=== PATIENT | female | born 1980 | race Caucasian/White ===

== ENCOUNTER 2020-07-21 10:31 | Emergency (ER) | payer OTHER ==
[~2020-07-21] VITALS: Ht 170.2 cm; Wt 94.0 kg
[2020-07-21 10:41] VITALS: BP 143/70
--- NOTE | 2020-07-21 11:13 | PHYS DOC ---
Past History Past Medical History: Hypotension, Kidney Stones, UTI Past Surgical History: Hysterectomy, Tonsillectomy, Other Additional Past Surgical Histo: ACL, shoulder repair, kidney stone retrieval, urinary stent Alcohol Use: None General Adult EDM: Chief Complaint: PELVIC PAIN HPI: HPI: Patient is a female past medical history of kidney stones presents with a chief complaint of left sided flank and groin pain. Patient has associated urinary urgency and frequency. Symptoms have been ongoing for the last few days progressively becoming worse. Review of Systems: Review of Systems: Constitutional: Denies fever or chills Eyes: Denies change in visual acuity HENT: Denies nasal congestion or sore throat Respiratory: Denies cough or shortness of breath Cardiovascular: Denies chest pain or edema GI: Denies abdominal pain, nausea, vomiting, bloody stools or diarrhea : Positive urinary urgency positive frequency positive flank pain Musculoskeletal: Denies back pain or joint pain Integument: Denies rash Neurologic: Denies headache, focal weakness or sensory changes Endocrine: Denies polyuria or polydipsia Lymphatic: Denies swollen glands Psychiatric: Denies depression or anxiety Allergies: Allergies: Allergies Coded Allergies Type Severity Reaction Last Updated Verified tamsulosin Allergy Severe 07/21/20 Yes Uncoded Allergies Type Severity Reaction Last Updated Verified SULFA Allergy Severe 07/21/20 Physical Exam: PE: Constitutional: Well developed, well nourished, no acute distress, non-toxic appearance. [] HENT: Normocephalic, atraumatic, bilateral external ears normal, oropharynx moist, no oral exudates, nose normal. [] Eyes: PERRLA, EOMI, conjunctiva normal, no discharge. [] Neck: Normal range of motion, no tenderness, supple, no stridor. [] Cardiovascular:Heart rate regular rhythm, no murmur [] Lungs & Thorax: Bilateral breath sounds clear to auscultation [] Abdomen: Bowel sounds normal, soft, no tenderness, no masses, no pulsatile masses. [] Skin: Warm, dry, no erythema, no rash. [] Back: No tenderness, no CVA tenderness. [] Extremities: No tenderness, no cyanosis, no clubbing, ROM intact, no edema. [] Neurologic: Alert and oriented X 3, normal motor function, normal sensory function, no focal deficits noted. [] Psychologic: Affect normal, judgement normal, mood normal. [] Current Patient Data: Vital Signs: Vital Signs Date Time Temp Pulse Resp B/P (MAP) Pulse Ox O2 Delivery O2 Flow Rate FiO2 07/21/20 10:41 97.7 90 16 143/70 (94) 98 EKG: EKG: [] Radiology/Procedures: Radiology/Procedures: [] Impressions: IMPRESSION: 2 tiny nonobstructing calculi in the left kidney. No significant hydronephrosis however there is a 3.6 mm calcification in the left pelvis in or adjacent to the left ureter measuring 4.5 mm in size. This may represent a phlebolith as there are multiple phleboliths in the pelvis however distal ureteral calculus cannot be totally excluded. Recommend clinical correlation follow-up. Severe degenerative changes at the L5-S1 disc level. Electronically signed by: Deana Jc MD (07/21/2020 12:31 PM) [id number] Heart Score: Risk Factors: Risk Factors: DM, Current or recent (<one month) smoker, HTN, HLP, family history of CAD, obesity. Risk Scores: Score 0 - 3: 2.5% MACE over next 6 weeks - Discharge Home Score 4 - 6: 20.3% MACE over next 6 weeks - Admit for Clinical Observation Score 7 - 10: 72.7% MACE over next 6 weeks - Early Invasive Strategies Course & Med Decision Making: Course & Med Decision Making Pertinent Labs and Imaging studies reviewed. (See chart for details) [] Patient was evaluated for chief complaint. Work-up consisted of laboratory analysis and radiologic imaging. Results reviewed and discussed with patient. Patient's pain treated with Toradol. Patient was discharged home with prescription Poca. CT imaging confirms to tiny kidney stones in the left kidney. Radiologist questions kidney stone distal ureter. Given patient's history I suspect kidney stone. Patient is allergic to Flomax. Patient advised to take NSAIDs she will. Prescribed Poca. Patient referred to urology. Steffen Disclaimer: Steffen Disclaimer: This electronic medical record was generated, in whole or in part, using a voice recognition dictation system. Departure Departure: Impression: Primary Impression: Kidney stone Additional Impression: Flank pain Disposition: 01 DC HOME SELF CARE/HOMELESS Condition: STABLE Referrals: KELLIE MIRANDA (PCP) Patient Instructions: Kidney Stones Additional Instructions: [facility] [place] phone #[phone] Scripts Hydrocodone Bit/Acetaminophen (NORCO 5-325 TABLET) 1 Each Tablet 1 TAB PO PRN Q6HRS PRN for PAIN for 10 Days, #20 TAB 0 Refills Prov: ADELIA WILSON DO 07/21/20 ADELIA WILSON DO Jul 21, 2020 11:13
[2020-07-21 11:29] LABS: BILIRUBIN,URINE NEG (NEG); CLARITY,URINE HAZY; COLOR,URINE YELLOW; GLUCOSE,URINE NEG (NEG)
[2020-07-21 11:30] LABS: NITRITE,URINE NEG (NEG); RBC,URINE >40 /HPF (0-2); UROBILINOGEN,URINE 0.2 mg/dL (0.2 mg/dL); WBC,URINE OCC /HPF (0-4)
[2020-07-21 11:31] LABS: BACTERIA,URINE FEW /HPF (0-FEW); SQUAMOUS EPITHELIAL CELL,UR MOD /LPF
[2020-07-21 11:37] LABS: BASO % 1 % (0-3); EOS # 0.1 x10^3/uL (0.0-0.7); EOS % 1 % (0-3); HEMATOCRIT 39.8 % (36.0-47.0); HEMOGLOBIN 13.3 g/dL (12.0-15.5); LYMPH % 38 % (24-48); MEAN CORPUSCULAR HEMOGLOBIN 31 pg (25-35); MEAN CORPUSCULAR HGB CONC 33 g/dL (31-37); MEAN CORPUSCULAR VOLUME 91 fL (79-100); MONO # 0.5 x10^3/uL (0.0-1.1); MONO % 9 % (0-9); NEUT # 2.8 x10^3uL (1.8-7.7); NEUT % 52 % (31-73); PLATELET COUNT 216 x10^3/uL (140-400); RED BLOOD COUNT 4.37 x10^6/uL (3.50-5.40); RED CELL DISTRIBUTION WIDTH 13.1 % (11.5-14.5); WHITE BLOOD COUNT 5.4 x10^3/uL (4.0-11.0)
[2020-07-21 11:40] LABS: CALCIUM 8.7 mg/dL (8.5-10.1); CREATININE 0.8 mg/dL (0.6-1.0); GFR 80.3; POTASSIUM 3.6 mmol/L (3.5-5.1)
[2020-07-21 11:46] LABS: ALBUMIN/GLOBULIN RATIO 1.2 (1.0-1.7); TOTAL BILIRUBIN 1.2 mg/dL (0.2-1.0); TOTAL PROTEIN 7.3 g/dL (6.4-8.2)
[2020-07-21] MEDS ORDERED: KETOROLAC 30 MG/ML VIAL. IM ONE (12:00)
--- NOTE | 2020-07-21 12:33 | RAD ---
CT abdomen and pelvis without contrast: Reason for examination: Left sided flank pain. Helical images were obtained through the abdomen and pelvis with no intravenous or oral contrast admi nistered. Reconstruction was performed in sagittal and coronal planes. Exposure: One or more of the following individualized dose reduction techniques were utilized for thi s examination: 1. Automated exposure control 2. Adjustment of the mA and/or kV according to patient size 3. Use of iterative reconstruction technique. The lung bases are clear. The heart size is normal with no pericardial effusion. No abnormality seen at the liver, spleen, adrenal glands, pancreas or gallbladder. There is a small s plenule near the splenic hilum measuring approximately 1.1 cm in size. The abdominal aorta and inferi or vena cava show no acute abnormalities. There is no diverticulosis or diverticulitis or colitis. No abnormality seen at the appendix. The small intestinal tract shows no abnormally dilated loops of an wel or thickened bowel howe and no obstruction. No abnormality seen at the stomach which is not dist ended. The kidneys show no renal masses. There appear to be small nonobstructing renal calculi in the left kidney. No significant hydronephrosis is seen but there does appear to be a 4.5 mm calcificatio n in the pelvis which may lie within or adjacent to the distal left ureter. There are however multipl e phleboliths in the pelvis and this may represent a phlebolith. No abnormality seen at the bladder or vaginal cuff. No free fluid is present. There are severe degene rative changes at the L5-S1 disc level. IMPRESSION: 2 tiny nonobstructing calculi in the left kidney. No significant hydronephrosis however there is a 3. 6 mm calcification in the left pelvis in or adjacent to the left ureter measuring 4.5 mm in size. Thi s may represent a phlebolith as there are multiple phleboliths in the pelvis however distal ureteral calculus cannot be totally excluded. Recommend clinical correlation follow-up. Severe degenerative ch anges at the L5-S1 disc level. Electronically signed by: Deana Jc MD (07/21/2020 12:31 PM) [id number]
[2020-07-21] MEDS ORDERED: HYDR-3165 PO (12:45)
[2020-07-21] MEDS ORDERED: HYDROcodone/APAP 5/325MG 1 TAB TABLET PO ONE (13:00)
== END 2020-07-21 13:24 | disposition home or self-care (01) ==
LOC: ER 10:31
DX: N20.0 Calculus of kidney (principal); Z87.442 Personal history of urinary calculi; Z87.440 Personal history of urinary (tract) infections; Z90.710 Acquired absence of both cervix and uterus; Z88.8 Allergy status to other drugs, medicaments and biological substances
CPT/HCPCS: 36415; 74176; 80053; 81001; 85025; 96372; 99284; J1885

== ENCOUNTER 2020-08-22 16:37 | Emergency (ER) | payer OTHER ==
[~2020-08-22] VITALS: Ht 170.2 cm; Wt 94.0 kg
[~2020-08-22 16:37] MED LIST: HYDR-3165 PO
[2020-08-22 16:47] VITALS: BP_DIAS 88
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
[2020-08-22 17:35] VITALS: BP_SYST 1
== END 2020-08-22 17:34 | disposition home or self-care (01) ==
LOC: ER 16:37
DX: M25.511 Pain in right shoulder (principal); M25.561 Pain in right knee; Z87.442 Personal history of urinary calculi; Z87.440 Personal history of urinary (tract) infections; Z88.8 Allergy status to other drugs, medicaments and biological substances; V43.52XA Car driver injured in collision with other type car in traffic accident, initial encounter; Y93.I9 Activity, other involving external motion; Y92.488 Other paved roadways as the place of occurrence of the external cause; Y99.8 Other external cause status
CPT/HCPCS: 99281